=== PATIENT | male | born 1940 ===

== ENCOUNTER 2018-06-28 17:39 | Emergency (ER) | payer OTHER ==
[~2018-06-28] VITALS: Ht 180.3 cm; Wt 90.7 kg
[2018-06-28] MEDS ORDERED: COZAAR100 MG (17:47)
[2018-06-28] MEDS ORDERED: TOPROL XL100 MG (17:48)
[2018-06-28] MEDS ORDERED: CARDURA (17:49)
[2018-06-28] MEDS ORDERED: JANUVIA100 MG (17:52)
[2018-06-28] MEDS ORDERED: LANTUS SOL100 UNIT/1 (17:52)
== END 2018-06-28 23:58 | disposition home or self-care (01) ==
LOC: ER 17:39 → CPU-OBS 17:43 → ER 23:58
DX: I16.0 Hypertensive urgency (principal); I10 Essential (primary) hypertension; R07.89 Other chest pain